=== PATIENT | male | born 1985 | race Caucasian/White ===

== ENCOUNTER 2024-08-07 13:45 | Emergency (ER) | payer MEDICAID, SELFPAY ==
[2024-08-07 13:55] VITALS: BP 148/87; PULSE 77; RESP 20; TEMP 36.6; O2SAT 98; BMI 27.0
--- NOTE | 2024-08-07 14:29 | EDNOTE_ITS ---
ED Eye Problem RME/HPI General Chief complaint: Eye Problems Stated complaint: RIGHT EYE INJURY WORKING ON TRUCK Time Seen by Provider: 08/07/24 14:29 Arrival date/time: 08/07/24 13:45 RME / HPI RME / HPI Narrative: 39-year-old male patient presents emergency department with complaint of foreign body to right eye patient states he thinks he got a metal in his eyes while working on his truck last night. Patient endorses photophobia. Rates his pain currently as a 7 out of 10. Related Data Previous Rx's ?Medication ?Instructions ?Recorded gentamicin 0.3 % eye drops 3 drp ophthalmic (eye) QID 7 days 08/07/24 #5 mL Allergies Allergy/AdvReac Type Severity Reaction Status Date / Time No Known Allergies Allergy Verified 08/07/24 13:46 Review of Systems Review of Systems Systems Reviewed: All systems reviewed, normal except as documented Constitutional Constitutional: Reports system reviewed and no additional complaints, except as documented Eyes Eyes: Reports system reviewed and no additional complaints, except as documented, Denies eye discharge, Denies exophthalmos, Denies floaters and Reports irritation Cardiovascular Cardiovascular: Reports system reviewed and no additional complaints, except as documented Musculoskeletal Musculoskeletal: Reports system reviewed and no additional complaints, except as documented ED Exam General General appearance: Present alert and in no apparent distress Head Head exam: Present atraumatic and normocephalic Expanded Eye Exam Pupils: Right: regular, round (FB) ENT ENT exam: Present normal exam and normal oropharynx Chest Chest inspection: Present normal inspection Respiratory Respiratory exam: Present normal lung sounds bilaterally Cardiovascular Cardiovascular exam: Present regular rate Course Quality Measures none Orders Category Date Time Status Erythromycin Op Oint 0.5% Med 08/07/24 14:51 Discontinued 1 gm RIGHT EYE X1 ONE TETRACAINE Op Sejal 0.5% [Pontocaine Op Sejal 0.5%] Med 08/07/24 14:35 Discontinue d 1 drop RIGHT EYE X1 ONE Vital Signs Vital signs: Vital Signs Temperature 97.8 F 08/07/24 13:55 Pulse Rate 77 08/07/24 13:55 Respiratory Rate 20 08/07/24 13:55 Blood Pressure 148/87 H 08/07/24 13:55 Pulse Oximetry (%) 98 08/07/24 13:55 Oxygen Delivery Method Room Air 08/07/24 13:55 Procedures -ED Foreign Body Removal Time Out Performed: yes Site: right Description of foreign body: other (metal shaving) Sedation/Analgesia: other (tetracaine) Technique: manual removal Confirmed by:: direct visualization Complications: none Post-procedure exam: awake, alert, normal BP and normal O2 sat FB Removal Eye Time Out performed: Yes Location: eye (R) Topical anesthetic used: tetracaine Foreign body: metal Evidence of corneal penetration: Yes Technique: needle Procedure performed under: direct visualization with magnification Post-procedure medication: ophthalmic antibiotic Patient tolerated procedure: well Complications: incomplete foreign body removal, corneal penetration and other (patient felt comfortable after major removal of the FB he would be f/up with his PCP) Eye MDM Narrative MDM Narrative:: 39-year-old patient presents emergency department with complaint of foreign body to right eye. Metal shaving observed at 3:00 of right eye. Tetracaine applied an 18-gauge needle was used to remove foreign body patient symptoms improved he stable to [place] home Patient data External records reviewed:: None Clinical information provided by:: patient Social determinants that could affect healthcare access:: none Patient has the following chronic illnesses:: na How is presenting disease/condition affected by chronic disease/condition?: no chronic disease Evaluation data The following diagnostics were reviewed and interpreted by me:: other (specify) (na) Lab and/or radiology exams considered but not ordered:: na Interpretation Summary: na Medications / Prescriptions Medications or Prescriptions considered but not ordered:: per above Medication administrations:: Medication Administration History Discontinued Medications Erythromycin (Erythromycin Op Oint 0.5% 1 Gm Packet) 1 gm RIGHT EYE X1 ONE Stop: 08/07/24 14:52 Last Admin: 08/07/24 14:54 Dose: 1 gm Documented By: WESLEY Co-signed By: KESHIA Tetracaine HCl (Tetracaine Pf Op Sejal 0.5% 4 Ml Drpette) 1 drop RIGHT EYE X1 ONE Stop: 08/07/24 14:36 Last Admin: 08/07/24 14:54 Dose: 1 drop Documented By: WESLEY per above Consultations Consultation(s) initiated? (list below): No Diagnosis Eye Problem Differential Diagnosis: corneal abrasion, conjunctivitis, acute iritis, periorbital cellulitis and corneal ulcer Most likely diagnosis given after review of the tests above:: FB in right eye Admission Indicated Admission indicated?: not indicated Admission Request Was there a request for admission?: No Disposition Plan Disposition Plan: Discharge Discharge Attestation Discharge Attestation: The patient and all family members were given an opportunity to ask questions and understood the discharge instructions. Discharge instructions specifically effects, indications for sooner follow up or return to the emergency department, and the expected course of current diagnosis. Patient condition: Stable Discharge Plan Plan Patient Disposition: HOME (Self Care) Prescriptions/Referrals Prescriptions/Med Rec: New gentamicin 0.3 % drops 3 drp ophthalmic (eye) QID 7 Days Qty: 5 0RF Referrals: Reza Bustillo MD [Primary Care Provider] - In 1 week Problem List Clinical Impression: Foreign body in eyeball, right, Corneal abrasion Patient/Caregiver Discharge Instructions Education Materials: Foreign Object in the Cornea, ED Corneal Abrasion Print Language: Bangladeshi Stand Alone Forms: Marilyn Award Info., Patient Portal Info Letter
[2024-08-07] MEDS: Erythromycin Op Oint 0.5% 1 GM PACKET RIGHT EYE (14:54)
[2024-08-07] MEDS: TETRACAINE PF OP SOL 0.5% 4 ML DRPETTE 1 DROP RIGHT EYE (14:54)
== END 2024-08-07 15:12 | disposition home or self-care (01) ==
PROVIDERS: Emergency Provider Emergency Medicine; PCP Family Medicine
DX: T15.01XA Foreign body in cornea, right eye, initial encounter (principal); W44.9XXA Unspecified foreign body entering into or through a natural orifice, initial encounter
CPT/HCPCS: 65220; 99283; A9270

== ENCOUNTER 2024-08-07 16:58 | Emergency (ER) | payer MEDICAID, SELFPAY ==
[2024-08-07 18:36] VITALS: BP 143/89; PULSE 66; RESP 20; TEMP 36.8; O2SAT 98; BMI 27.0
--- NOTE | 2024-08-07 18:55 | PD.EDRME ---
Rapid Medical Screening Exam RME Arrival date/time: 08/07/24 16:58 39 year male present to ED for c/o fb eye. removed today I have greeted and performed a focused initial assessment of this patient. A comprehensive ED assessment and evaluation of the patient, analysis of all test results, and completion of the medical decision making process will be conducted by additional ED providers. Chief Complaint: Eye Problems Time Seen by Provider: 08/07/24 18:55 Vital signs: Vital Signs Temperature 98.2 F 08/07/24 18:36 Pulse Rate 66 08/07/24 18:36 Respiratory Rate 20 08/07/24 18:36 Blood Pressure 143/89 H 08/07/24 18:36 Pulse Oximetry (%) 98 08/07/24 18:36 Oxygen Delivery Method Room Air 08/07/24 18:36
[2024-08-07] MEDS: TETRACAINE PF OP SOL 0.5% 4 ML DRPETTE 1 DROP RIGHT EYE (18:58)
--- NOTE | 2024-08-07 20:43 | PC.NURSE ---
NO ANSWER FOR VISUAL ACUITY
--- NOTE | 2024-08-07 22:57 | PC.NURSE ---
NO ANSWER FOR VISUAL ACUITY
== END 2024-08-07 22:59 | disposition left against medical advice (07) ==
PROVIDERS: Emergency Provider Emergency Medicine; PCP Family Medicine
DX: T15.90XA Foreign body on external eye, part unspecified, unspecified eye, initial encounter (principal); X58.XXXA Exposure to other specified factors, initial encounter; Z53.29 Procedure and treatment not carried out because of patient's decision for other reasons
CPT/HCPCS: 99281